=== PATIENT | male | born 1975 | race Caucasian/White ===

== ENCOUNTER 2017-04-04 18:16 | Emergency (ER) | payer OTHER ==
--- NOTE | ~2017-04-04 | CR94 ---
[facility] A Service of [facility] & [facility] RADIOLOGY TEXT RESULTS PATIENT: KRISTIE RUBY LOCATION: [facility] : 71 UNIT #: [id number] AGE: [address]: Meliza Chavez APRN SEX: M ORDER DR: [id number] [facility] [address] [place], [place] [address] [id number] E MR#: [id number] Acc #: [id number] NAME: KRISTIE RUBY : 1975 SEX: M STUDY DATE/TIME: 04/04/2017 20:09 UNIT: [facility] ROOM: STUDY DESCRIPTION: CR Elbow Min 3 Views Rt Attending Physician: Meliza Chavez A.P.R.N. Ordering Physician: Meliza Chavez A.P.R.N. Primary Care Physician: Mukund Jenkins M.D. MEDICAL IMAGING REPORT This report is preliminary unless electronic signature is present EXAM Three views of the right elbow 04/04/2017 HISTORY Right elbow pain after falling 3 days ago. COMPARISON Right elbow radiographs 10/22/2013. FINDINGS No acute abnormality of the right elbow. Posterior olecranon spur. No significant change from 10/22/2013. Dictated by... Martha Norton M.D. THIS IS AN ELECTRONICALLY VERIFIED REPORT Martha Norton M.D. at 04/06/2017 9:52 AM ROSS/jenni TD: 04/05/2017 13:50 JOB #: [id number] MEDICAL IMAGING REPORT Page 1 of 1 COPY
--- NOTE | ~2017-04-04 | CR72 ---
[facility] A Service of [facility] & [facility] RADIOLOGY TEXT RESULTS PATIENT: KRISTIE RUBY LOCATION: [facility] : 71 UNIT #: [id number] AGE: [address]: Meliza Chavez APRN SEX: M ORDER DR: [id number] [facility] [address] [place], [place] [address] [id number] E MR#: [id number] Acc #: [id number] NAME: KRISTIE RUBY : 1975 SEX: M STUDY DATE/TIME: 04/04/2017 20:05 UNIT: [facility] ROOM: STUDY DESCRIPTION: CR Chest Single View Portable Attending Physician: Meliza Chavez A.P.R.N. Ordering Physician: Meliza Chavez A.P.R.N. Primary Care Physician: Mukund Jenkins M.D. MEDICAL IMAGING REPORT This report is preliminary unless electronic signature is present EXAM Portable chest x-ray 04/04/2017 HISTORY Cough. 3 days duration. Cough, congestion. Fell 25 March. FINDINGS AP radiograph of the chest is presented and comparison 10/06/2011. The heart and mediastinum are normal in size and contour. The lungs are well inflated bilaterally and are clear. No pleural effusion or pneumothorax. No suspicious nodule. No acute appearing bony abnormality. Dictated by... Scott Guevara M.D. THIS IS AN ELECTRONICALLY VERIFIED REPORT Scott Guevara M.D. at 04/06/2017 4:57 PM Altagracia TD: 04/05/2017 09:36 JOB #: [id number] MEDICAL IMAGING REPORT Page 1 of 1 COPY
[~2017-04-04 18:16] MED LIST: ALBUTEROL17 G1 IH; ALBUTEROL17 GM INH; AMOXICILLIN PO; DICLOFENAC PO; EFFEXOR XR150 MG PO; ERYTHROMYCIN500 MG PO; FLEXERIL PO; FLEXERIL10 MG PO; HYDROCODON-ACE1 EAC1 PO; HYDROCODONE BIT1 TAB PO; IBUPROFEN PO; IBUPROFEN800 MG PO; JANUVIA100 MG PO; KETOPROFEN PO; LORTAB PO; NEURONTIN300 MG PO; NO MEDICATIONS; NORCO 7.5-3251 EACH PO; ONGLYZA5 MG PO; PHENERGAN PO; PHENERGAN W/CO120 ML PO; ROBAXIN PO; ULTRAM PO; VIBRAMYCIN100 M1 PO; ZANAFLEX PO; ZANAFLEX2 M1 PO; ZITHROMAX1 G/PKT PO
[2017-04-04 20:40] LABS: INFLUENZA A NEG (NEG); INFLUENZA B NEG (NEG)
== END 2017-04-04 21:08 | disposition home or self-care (01) ==
LOC: CFTX 18:16 → CED 18:16 → CFTX 19:47
PROVIDERS: Nurse Practitioner
DX: J06.9 Acute upper respiratory infection, unspecified (principal); M25.521 Pain in right elbow
CPT/HCPCS: 71010; 73080; 87651; 87804; 94640; 96372; 99283; J1885